=== PATIENT | male | born 1995 | race Caucasian/White ===

== ENCOUNTER 2017-08-16 05:39 | Observation (INO) | payer OTHER ==
--- NOTE | 2017-08-14 10:53 | PDGENHP ---
History and Physical - Chief Complaint Bilateral hip pain - History of Present Illness 1. Bilateral~Femoroacetabular impingement (RITIKA) Mixed type, with~resultant labral tear~ 2. Hyper laxity HISTORY OF PRESENT ILLNESS: Shoshanais a 22 y.o.~very ~active male~who I have had the pleasure to consult on today. I have enjoyed meeting him. He~lives in [place]. 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 ~He~is single; he~has no~children. ~ Shoshanaenjoys MMA fighting, running, and swimming. River's bilateral~hip pain started a year ago, with no~recalled trauma or injury, and with no~previous complaints. Shoshanadoes not have~a known history of hip dysplasia. Presentation today is of anterior, posterior, lateral bilateral~hip pain. ~The hip does not~wake him~at night and does~click and catch on him. Sitting does not present a problem~for him. Shoshanadoes not~report suffering from lower back pain episodes. Shoshanahas~participated in physical therapy and has~tried other conservative measures including dry needling. He~has not~received sufficient symptomatic improvement. Shoshanahas~utilized medication for pain management, including OTC acetaminophen and CBD oil. Shoshanahas used medication since the pain began. Shoshanaunderstands that he~has a hip and pelvis problem which should be researched and wishes to get a better understanding of his~hip status, followed by an establishment of a treatment strategy, hoping he~would be able to get back to his~well being active life. History: Past medical history: ~ None which is relevant Relevant familial history: None which is relevant Past surgical history: No. Surgery Anesthesia 1 Left Ing general Shoshanadenies problematic issues with general anesthesia in the past. I have reviewed, verified and agree with the past medical, surgical, family and social history. Current Medications:~currently has no medications in their medication list. ALLERGIES:~has No Known Allergies. Objective: Physical Examination: Shoshanais 6~feet 1~inches tall and weighs 155~Lbs. Shoshanais AAO x3; he~is well- nourished, in NAD. Skin is warm and dry. ~Breathing is non-labored. ~CV with RRR by pulse. Abdomen is soft, NTND. Currently, he~walks with a normal~gait. Trendelenburg sign is negative~and proprioception is reduced, both~side. He~presents with moderate~signs of joint laxity. Beightons Score: 5 Lower spine examination is negative~for sciatic or femoral nerve irritation with negative~SLR &~femoral stretch tests. Range of motion of the spine is normal~for flexion, extension, and rotations, with no~associated pain. Strength, Sensation and pulses are normal - bilaterally Ankles and knees exams are normal~and no~mal-alignment is evident. He~has no leg length discrepancy. Thigh circumference is symmetric~with no evidence for muscle atrophy~on both~ side. Hip ROM (degrees): FL ER At 90~hip FL IR At 90~hip FL AB AD EX IR Neutral hip ER Neutral hip R 110 40 15 40 10 20 55 35 L 105 40 25 45 10 20 50 40 Specific hip and pelvis tests: Quadrant ROBERT Roll Add. Longus R +++ +++ (more than quad) Negative Negative L +++ +++ (more than quad) Negative Negative Glut. Med ITB Pos. Imp R Negative 5/5 strength Negative 5/5 strength Negative L Negative 5/5 strength Negative 5/5 strength Negative Squeeze test measured strong Bony Symphysis pubis is pain free~to touch while concentric activity of the rectus abdominis, does not~produce pain at its insertion. Ilio Psos specific tests are negative for pain during cycling for both hips~and remarkable for no snap HF has no pain both hips. Anterior capsule tenderness bilaterally Greater trochanteric burse is pain free~on both hips. Piriformis tests: FAIR is negative, with no~local signs of neuritis related to sciatic nerve. SIJs examination is produces pain on left side~with normal~ROBERT in relation and local tenderness. Hamstrings tests are negative~functional contraction and negative~tendinopathy both hips. Imaging: Radiology studies which I have personally reviewed, analyzed and measured are below: XR: AP of the hip and pelvis: Performed in a good~technique Coccyx at level of the~pubic symphysis Standing [place] Lines are preserved. Minimal~Pathological signs are seen in the Symphysis Pubis. Minimal~Pathological signs are seen at the Ischial tuberosity. ~ Specific measurements show: NSA~ LCE Sourcil~Angle Sharp's angle Lat. Cam Lat. Pincer C.Over~sign Head~Coverage % ATDmm R N 35 1 35 (29) + + - N N L N 35 1 34 (29) + + - N N Pos. wall sign ISS NAD ~~Dysplasia Comments R Negative Negative 20~mm Negative L Negative Negative 17~mm Negative Sclerosis Sup. Lat. OA Cysts Joint Space-WBZ Joint Space-Medial R Negative Negative Negative 3.7~mm 3.2~mm L Negative Negative Negative 3.5~mm 3.2~mm X Table lateral: Anterior cam lesion is seen~on both hips. Alpha Angle: ~ Right 72~dergrees Left 72~degrees MRI shows:~good cartilage /~coverage, no bone edema, labral tears/anterior Right side shows large para-labral cyst extending from inferior anterior joint through the IP and inner pelvis Report: 1. Left hip anterior superior labral tear as well as right hip anterior superior labral fraying. No associated cartilage damage is demonstrated. 2. Right iliopsoas bursitis with strain involving the distal iliopsoas muscle fibers. 3. Prominence of the femoral head neck junctions may predispose to cam-type femoral acetabular impingement. Focal marrow edema is demonstrated at the right femoral head neck junction. Impression and plan: Shoshanais a 22 y.o.~active male~suffering from symptomatic bilateral~hip pain due to Bilateral~Femoroacetabular impingement (RITIKA) Mixed type, with~resultant labral tear~causing significant disability to him~and altering his~sport and life activities. Physical examination, imaging, and his~story correspond with the diagnosis mentioned above. I explained that femoroacetabular impingement (RITIKA) arises due to a bony or soft tissue conflict between the femur (ball) and acetabulum (socket) caused by an abnormality in the shape of the hip joint. Over time, repetitive impingement can result in damage to the labrum and adjacent surface cartilage within the socket, ultimately giving rise to progressive osteoarthritis of the hip. I explained that although a labral tear can be a source of pain, it is rarely the root of the problem and typically occurs secondary to an underlying abnormality in the shape and mechanics of the hip joint. ~ I reviewed conservative treatment options for RITIKA including activity modification to avoid positions of impingement, physical therapy, non-steroidal anti-inflammatory medications, and various injections (corticosteroid and PRP) aimed at reducing inflammation in the hip joint or/and preventing dynamic impingement. PRP injections may promote healing and reduce symptoms in certain cases but it will not repair chronically damaged tissue. Although these measures may help to buy time and reduce current level of symptoms, they are not a definitive solution to the problem given the underlying abnormality in the shape of the hip joint. Patients who have failed conservative management and continue to experience symptoms are candidates for hip arthroscopy, a minimally invasive surgery that can definitively address the underlying problem. Hip arthroscopy typically includes treating the labrum with either repair or reconstruction of the torn labrum; as well as addressing the underlying abnormalities by restoring the normal shape to the hip joint. ~If the cartilage is damaged a Microfracture surgical procedure may also be necessary to help stimulate the growth of fibrocartilage. ~If a patient requires a labral reconstruction or a Microfracture, the initial rehabilitation from the surgery may take longer, but the fdc results are typically favorable. I reviewed the technical aspects of hip arthroscopy including risks, benefits, and expected course of recovery. River~understands that hip arthroscopy is a minimally invasive outpatient procedure carried out through small incisions on the outer aspect of the hip joint. During surgery, the labral tear will be identified and either repaired or reconstructed~using bone anchors and suture material. Additionally, any excessive bone will be removed with a high-speed roscoe to reshape the hip joint and restore normal anatomy. Risks include infection, bleeding, injury to nearby nerves or vessels, stiffness, persistent pain, instability, venous thromboembolic disease, and traction related complications including temporary foot numbness. Rarely, revision surgery may be required to address these problems. Overall recovery takes approximately 4~ 8~months depending on the extent of damage and degree of repair. In the event that the labral tissue quality is inadequate for successful repair and healing, River~understands that a labral reconstruction will be performed. This procedure entails placing a cadaver tissue graft within the hip joint and stabilizing it with bone anchors to build a new labrum. The overall recovery time for labral reconstruction is similar to that of labral repair, although the surgical procedure takes longer to perform. River~will review the info presented. In order to obtain more detailed information regarding the alignment, orientation, and shape of the bony hip and pelvis I will order a CT scan to be performed. The results of the CT scan, including femoral torsion and acetabular version measured values and 3D images, will aid me in deciding on the best treatment strategy and surgical pre-planning. RiverDougwill contact us if he~wishes to pursue further treatment in the future. Shoshanais happy with this plan. I have also supplied him~with handouts, outlining the expected surgical treatment and rehab involved. I wish~Shoshanaall the best, ~~ Krishna Fine, PAC History Information - Allergies/Home Medication List Allergies/Adverse Reactions: No Known Allergies Allergy (Verified 07/12/17 15:25) Home Medications: NK [No Known Home Meds] 07/12/17 [Last Taken Unknown] I have personally reviewed and updated: medical history - Social History Smoking Status: Never smoked Review of Systems Review of Systems: Physical Exam Physical Exam:
[2017-08-16] MEDS ORDERED: ACETAMINOPHEN 500 MG TAB PO ONE (05:53)
[2017-08-16] MEDS ORDERED: PREGABALIN 150 MG CAP PO ONE (05:53)
[2017-08-16] MEDS ORDERED: ceFAZolin 2 GM/SWFI 2 GM/20 ML SYR IVP ONE (05:53)
[2017-08-16] MEDS ORDERED: LR 1,000 ML IV ONE (05:54)
[2017-08-16] MEDS ORDERED: LIDOCAINE 1% 2 ML INJ ID PRN (05:54)
--- NOTE | 2017-08-16 06:48 | PDANEPAE ---
ANE History of Present Illness B femoroplasty ANE Past Medical History - Cardiovascular History Hx Hypertension: No Hx Arrhythmias: No Hx Chest Pain: No Hx Coronary Artery / Peripheral Vascular Disease: No Hx CHF / Valvular Disease: No Hx Palpitations: No - Pulmonary History Hx COPD: No Hx Asthma/Reactive Airway Disease: No Hx Recent Upper Respiratory Infection: No Hx Oxygen in Use at Home: No Hx Sleep Apnea: No Sleep Apnea Screening Result - Last Documented: Negative - Neurologic History Hx Cerebrovascular Accident: No Hx Seizures: No Hx Dementia: No - Endocrine History Hx Diabetes: No - Renal History Hx Renal Disorders: No - Liver History Hx Hepatic Disorders: No - Neurological & Psychiatric Hx Hx Neurological and Psychiatric Disorders: Yes Neurological / Psychiatric History Comment: anxiety. depression - Cancer History Hx Cancer: No - Congenital Disorder History Hx Congenital Disorders: No - GI History Hx Gastrointestinal Disorders: No - Other Health History Other Health History: has gold crown to one tooth - Chronic Pain History Chronic Pain: No - Surgical History Prior Surgeries: hernia repair in second grade ANE Review of Systems Review of systems is: negative Review of Systems: - Exercise capacity Exercise capacity: >=4 METS METS (RN): 6 METS ANE Patient History - Allergies Allergies/Adverse Reactions: No Known Allergies Allergy (Verified 07/12/17 15:25) - Home Medications Home medications: home medication list seen and reviewed Home Medications: NK [No Known Home Meds] 07/12/17 [Last Taken Unknown] - NPO status NPO Status: no food or drink >8 hours NPO Since - Liquids (Date): 08/15/17 NPO Since - Liquids (Time): 22:30 NPO Since - Solids (Date): 08/15/17 NPO Since - Solids (Time): 21:00 - Anes Hx Anes Hx: post operative nausea - Smoking Hx Smoking Status: Never smoked - Family Anes Hx Family Anes Hx: none Family Hx Anesthesia Complications: none ANE Labs/Vital Signs - Vital Signs Blood Pressure: 147/87 Heart Rate: 62 Respiratory Rate: 18 O2 Sat (%): 98 Height: 185.42 cm Weight: 70.307 kg ANE Physical Exam - Airway Neck exam: FROM Mallampati Score: Class 1 Mouth exam: normal dental/mouth exam - Pulmonary Pulmonary: no respiratory distress - Cardiovascular Cardiovascular: regular rate and rhythym - ASA Status ASA Status: I ANE Anesthesia Plan Anesthesia Plan: general endotracheal anesthesia
[2017-08-16] MEDS ORDERED: MIDAZOLAM 2 MG/2 ML VIAL IVP ONE (06:58)
[2017-08-16] MEDS ORDERED: ROCURONIUM 50 MG/5 ML VIAL ONE (07:11)
[2017-08-16] MEDS ORDERED: fentaNYL 100 MCG/2 ML INJ ONE ×2 (07:11→16:05)
[2017-08-16] MEDS ORDERED: HYDROmorphONE/DILAUDID 2 MG/ML INJ ONE ×3 (07:11→13:02)
[2017-08-16] MEDS ORDERED: LIDOCAINE 2% 100 MG/5 ML SYR ONE (07:11)
[2017-08-16] MEDS ORDERED: DEXAMETHASONE 4 MG/ML VIAL ONE (07:11)
[2017-08-16] MEDS ORDERED: ONDANSETRON 4 MG/2 ML VIAL ONE ×2 (07:11→16:28)
[2017-08-16] MEDS ORDERED: SUGAMMADEX SODIUM 200 MG/2 ML VIAL IVP ONE (07:11)
[2017-08-16] MEDS ORDERED: PROPOFOL 200 MG/20 ML VIAL ONE (07:11)
[2017-08-16] MEDS ORDERED: PROPOFOL/EMULSION 500 MG/50 ML BOTTLE IV ONE ×3 (07:36→14:13)
[2017-08-16] MEDS ORDERED: hydrALAZINE 20 MG/ML VIAL ONE (11:04)
[2017-08-16] MEDS ORDERED: LABETALOL HCL 5 MG/ML 20 ML MDV ONE (13:14)
--- NOTE | 2017-08-16 13:45 | POSTANESTH ---
Post Anesthetic Evaluation Cardiovascular Status: Normal, Stable, Similar to Pre-Op Cond Respiratory Status: Normal, Stable, Similar to Pre-op Cond. Level of Consciousness/Mental Status: Can Participate in Eval, Mildly Sleepy, Arousable Pain Control: Adequate, Prn Tx Ordered Nausea/Vomiting Control: Adequate, Prn Tx Ordered Complications Possibly Related to Anesthesia: None Noted
[2017-08-16] MEDS ORDERED: ceFAZolin 1 GM VIAL ONE ×2 (15:08→15:35)
[2017-08-16] MEDS ORDERED: HYDROmorphONE/DILAUDID 1 MG/ML INJ IVP PRN ×2 (16:02→18:31)
[2017-08-16] MEDS ORDERED: LABETALOL HCL 5 MG/ML 20 ML MDV IVP PRN (16:02)
[2017-08-16] MEDS ORDERED: NALOXONE HCL 0.4 MG/ML INJ IVP PRN (16:02)
[2017-08-16] MEDS ORDERED: DIAZEPAM 10 MG/2 ML SYR IVP PRN (16:02)
[2017-08-16] MEDS ORDERED: HYDROCODONE/APAP 5/325 TAB PO PRN (16:02)
[2017-08-16] MEDS ORDERED: MEPERIDINE 25 MG/ML SYR IVP PRN (16:02)
[2017-08-16] MEDS ORDERED: ONDANSETRON 4 MG/2 ML VIAL IVP PRN ×2 (16:02→18:26)
[2017-08-16] MEDS ORDERED: PROMETHAZINE HCL 25 MG/ML INJ IVP PRN ×2 (16:02→18:53)
[2017-08-16] MEDS ORDERED: ACETAMINOPHEN 500 MG TAB PO PRN (16:02)
[2017-08-16] MEDS ORDERED: OXYCODONE/APAP 5/325 TAB PO PRN (16:02)
[2017-08-16] MEDS ORDERED: DEXAMETHASONE 4 MG/ML VIAL IVP PRN (16:02)
[2017-08-16] MEDS ORDERED: MEPERIDINE 25 MG/ML SYR ONE (16:05)
[2017-08-16] MEDS: fentaNYL 100 MCG/2 ML INJ IVP PRN ×2 (16:26→17:27)
[2017-08-16] MEDS ORDERED: HYDROCODONE/APAP 5/325 TAB ONE (18:01)
[2017-08-16] MEDS ORDERED: ONDANSETRON DISINTEGRATING 4 MG TAB PO PRN (18:26)
[2017-08-16] MEDS ORDERED: POLYETHYLENE GLYCOL 3350 17 GM PKT PO PRN (18:26)
[2017-08-16] MEDS ORDERED: MAGNESIUM HYDROXIDE 30 ML UDCUP PO PRN (18:26)
[2017-08-16] MEDS ORDERED: DIAZEPAM 2 MG TAB PO PRN (18:26)
[2017-08-16] MEDS ORDERED: BISACODYL 10 MG SUPP PR PRN (18:26)
[2017-08-16] MEDS ORDERED: LACTULOSE 20 GM/30 ML UDCUP PO PRN (18:26)
[2017-08-16] MEDS ORDERED: NS 1,000 ML IV SCH (18:30)
[2017-08-16] MEDS ORDERED: PROMETHAZINE HCL 25 MG TAB PO PRN (18:50)
[2017-08-16] MEDS ORDERED: HYDROmorphONE/DILAUDID 1 MG/ML INJ ONE ×2 (18:53→19:14)
[2017-08-16] MEDS ORDERED: PROMETHAZINE HCL 25 MG/ML INJ ONE (19:04)
[2017-08-16] MEDS: SENNOSIDES/DOCUSATE SODIUM TAB PO SCH (20:41)
[2017-08-16] MEDS: NAPROXEN SODIUM 220 MG TAB PO SCH (20:41)
--- NOTE | 2017-08-17 00:32 | SUROPNOTE ---
[facility] Operative Report - Surgery Surgery was performed at [facility] on 08/16/17 ~~ OPERATION NOTE~on River Chau Diagnosis: 1. Bilateral~Femoroacetabular impingement (RITIKA) Cam type, with~resultant labral tear, Cartilage damage 2. Toni anterior hip instability Indication: Failure to obtain satisfactory results with long standing conservative measures. Operation 1:~Left~Arthroscopic Labral repair, Debridement of loose cartilage flap + micro fracture of acetabulum, CAM resection, Synovectomy, Capsular repair Surgeon: ~~~~~~~~~~~Bob Whiting MD ~ Scale Reclamation Tender:~~~Otilia Sahu MD Anaesthetic:~~~~~~~General Findings~ Left~Hip: Labrum: hypertrophic, torn 12-3 Acetabulum: Cartilage damage grade 4, cam type flap~extending around chondrolabral junction, circumferentially, from 11~to 3, 10-15% rim to acatabular fossa Fovea: Partial tear of LT Femoral Head: Normal cartilage Synovium: severe~synovitis Peripheral Compartment: Anterolateral CAM between 11~O'clock superiorly and 6~O' clock anteriorly Procedure: Supine on operating table. General anaesthetic. Antibiotics given. Standard traction set up, without perineal post. A spinal needle was guided to the femoral head neck junction and traction gradually applied with the joint vented. Local anesthetic infiltrated into the skin around the portals. Once 15mm of distraction was achieved the hip needle was then passed into the joint staying as close to the femoral head as possible. A Nytenol wire was passed through the hip needle ensuring that it passed all the way to the fovea to confirm central placement of the needle. Skin was incised and then the portals sequentially dilated to 7 mm. Switching stick inserted and 30 scope passed over the top. Under dry scope conditions the anterior portal was created by passing the hip needle into the joint under direct vision. Again this was dilated up to 7 mm and the slotted canule was inserted. The saline was then turned on and the joint irrigated. The joint was carefully inspected and photographed with findings as above. The arthroscope was switched to the 70 scope to complete the inspection. A longitudinal intra portal capsulotomy was then performed using cowlitz blade and the 50 Arthrocare wand to connect the two portals. Central Compartment Intervention: Synovectomy was performed. Flap was debrided and stable edges were achieved. ~The labrum was then repaired~with 2~peek anchor IO, 12 and 3 o'clock,~ achieving good anatomical rim fixation. Microfractures were applied to the area where the bone was exposed from missing cartilage. ~ LT was treated with RF wand to shrink and stabilize reactive tissue.~ Peripheral Compartment Intervention: A box-shaped capsulotomy was made with the assistance of SpeedStitch traction suture. This allowed traction on the capsule and a good view of the femoral neck with smaller capsulotomy. The articular margin where sphericity was lost was marked with the Arthrocare wand under X-ray control. Bone lateral to this was removed with the the roscoe. Portals were switched to deal with the superior headneck junction. Care was taken not to stray posterior and laterally in view of the location of the retinacular vessels. The cam lesion was addressed from 11~to 6~O'clock. A dynamic impingement test was undertaken and vision with 90 of flexion and 10 of internal rotation to confirm that there was no bony or soft tissue impingement or deformation of the labrum. ~Good clearance was obtained with good labral seal. The joint was thoroughly irrigated of any loose debris and the anterior capsule was repaired with 3~No.1 vicryl stitches, closing 80% of the capsulotomy. The skin was then closed with Nylon. Padded dressing was applied. Operation 2:~Right Arthroscopic Labral repair, Debridement of loose cartilage flap + micro fracture of acetabulum, CAM resection, Synovectomy, Capsular repair Surgeon: ~~~~~~~~~~~Bob Whiting MD ~ Scale Reclamation Tender:~~~Otilia Sahu MD Anaesthetic:~~~~~~~General Findings~ Right Hip: Labrum: hypertrophic, torn 12-3 Acetabulum: Cartilage damage grade 4, cam type flap~extending around chondrolabral junction, circumferentially, from 11~to 3, 10-15% rim to acatabular fossa Fovea: Partial tear of LT Femoral Head: Normal cartilage Synovium: severe~synovitis Peripheral Compartment: Anterolateral CAM between 11~O'clock superiorly and 6~O' clock anteriorly Procedure: Supine on operating table. General anaesthetic. Antibiotics given. Standard traction set up, without perineal post. A spinal needle was guided to the femoral head neck junction and traction gradually applied with the joint vented. Local anesthetic infiltrated into the skin around the portals. Once 15mm of distraction was achieved the hip needle was then passed into the joint staying as close to the femoral head as possible. A Nytenol wire was passed through the hip needle ensuring that it passed all the way to the fovea to confirm central placement of the needle. Skin was incised and then the portals sequentially dilated to 7 mm. Switching stick inserted and 30 scope passed over the top. Under dry scope conditions the anterior portal was created by passing the hip needle into the joint under direct vision. Again this was dilated up to 7 mm and the slotted canule was inserted. The saline was then turned on and the joint irrigated. The joint was carefully inspected and photographed with findings as above. The arthroscope was switched to the 70 scope to complete the inspection. A longitudinal intra portal capsulotomy was then performed using cowlitz blade and the 50 Arthrocare wand to connect the two portals. Central Compartment Intervention: Synovectomy was performed. Flap was debrided and stable edges were achieved. ~The labrum was then repaired~with 3~peek anchor IO, 12, 3 and 4 o'clock,~ achieving good anatomical rim fixation. Microfractures were applied to the area where the bone was exposed from missing cartilage. ~ LT was treated with RF wand to shrink and stabilize reactive tissue.~ Peripheral Compartment Intervention: A box-shaped capsulotomy was made with the assistance of SpeedStitch traction suture. This allowed traction on the capsule and a good view of the femoral neck with smaller capsulotomy. The articular margin where sphericity was lost was marked with the Arthrocare wand under X-ray control. Bone lateral to this was removed with the the roscoe. Portals were switched to deal with the superior headneck junction. Care was taken not to stray posterior and laterally in view of the location of the retinacular vessels. The cam lesion was addressed from 11~to 6~O'clock. A dynamic impingement test was undertaken and vision with 90 of flexion and 10 of internal rotation to confirm that there was no bony or soft tissue impingement or deformation of the labrum. ~Good clearance was obtained with good labral seal. The joint was thoroughly irrigated of any loose debris and the anterior capsule was repaired with 3~No.1 vicryl stitches, closing 80% of the capsulotomy. The skin was then closed with Nylon. Padded dressing was applied. After surgery, River~moved both lower limbs and had no NV compromise. Evaluation under Anesthesia: Pre: IR 90 ER 90 ABD Flexion Right 20 40 45 120 Left 25 45 40 120 Post op instructions: 1. Full~weight bearing crutches for 6~weeks 2. Pain killers as prescribed 3. Follow up visit with me, as scheduled, where a rehab protocol would be discussed 4. Avoid hip external rotation for 4 weeks 5. ~~25 days of NSAIDS need to be taken in order to prevent the possible formation of HO ~ Kind regards, ~~ Dr. Bob Whiting
[2017-08-17] MEDS: OXYCODONE/APAP 5/325 TAB PO PRN ×3 (01:59→09:46)
[2017-08-17 04:43] VITALS: RESP 16
[2017-08-17 07:45] VITALS: BP 110/60; PULSE 77; TEMP 97.8; O2SAT 98
[2017-08-17] MEDS: SENNOSIDES/DOCUSATE SODIUM TAB PO SCH (07:55)
[2017-08-17] MEDS: NAPROXEN SODIUM 220 MG TAB PO SCH (07:56)
--- NOTE | 2017-08-17 11:59 | ASDISCHSUM ---
Discharge Information Plan Status:Home with No Needs Medically Cleared to Leave: Discharge Date:08/17/2017 11:38 AM CM D/C Disposition:Home, Routine, Self-Care ADT D/C Disposition:Home, Routine, Self-Care Projected Discharge Date:08/17/2017 11:38 AM Transportation at D/C: Discharge Delay Reason: Follow-Up Date:08/17/2017 11:38 AM Discharge Slot: Final Diagnosis: Placement Information Patient Contact Information Contact Name:CHRISTIANO Relationship:Mother Address: Work Phone: City: [facility] Phone: State/Zip Code: Email: Financial Information Financial Class:HMO and PPO Plans Primary Plan Desc:[facility] Primary Plan Number:[id number] Secondary Plan Desc: Secondary Plan Number: Assessment Information Intervention Information
== END 2017-08-17 11:38 | disposition home or self-care (01) ==
LOC: FSGY 05:39 → INTOOBSV 18:26 → F3N 18:26
PROVIDERS: ADMIT Orthopaedic Surgery Sports Medicine; ATTEND Orthopaedic Surgery Sports Medicine
DX: M25.851 Other specified joint disorders, right hip (principal); M25.852 Other specified joint disorders, left hip; S73.191A Other sprain of right hip, initial encounter; S73.192A Other sprain of left hip, initial encounter
CPT/HCPCS: 29863; 76001; G0378; C1713; J0360; J0690; J1100; J1170; J2001; J2250; J2405; J2550; J2704; J3010; J3490

== ENCOUNTER 2018-07-10 12:49 | Day surgery (SDC) | payer OTHER ==
--- NOTE | 2018-07-10 12:39 | PDGENHP ---
History and Physical - Chief Complaint Bilateral Hip Pain - History of Present Illness Diagnosis: 1. Bilateral~Femoroacetabular impingement (RITIKA) Mixed type,~with~resultant labral tear~ 2. Hyper laxity~ 3. History of Bilateral Hip Arthroscopy HISTORY OF PRESENT ILLNESS: Shoshanais a 22 y.o.~very~~active male~who I have had the pleasure to consult on today. 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 ~ Shoshanaenjoys MMA fighting, running, and swimming. River's~bilateral~hip pain started a year ago, with~no~recalled trauma or injury, and with no~previous complaints. Shoshanadoes not have~a known history of hip dysplasia. Presentation today is of~anterior, posterior, lateral~bilateral~hip pain. ~The hip~does not~wake him~at night and does~click and catch on him. Sitting~does not present a problem~for him.~Shoshanadoes not~report suffering from lower back pain episodes. Shoshanahas~participated in physical therapy and has~tried other conservative measures including dry needling.~Dain~has not~received sufficient symptomatic improvement. Shoshanahas~utilized medication for pain management, including OTC acetaminophen and~CBD oil.~Shoshanahas used medication since the pain began. Shoshanaunderstands that he~has a hip and pelvis problem which should be researched and wishes to get a better understanding of his~hip status, followed by an establishment of a treatment strategy, hoping he~would be able to get back to his~well being active life. History: Past medical history:~~ None which is relevant~ Relevant familial history:~None which is relevant~ Past surgical history:~ No. Surgery Anesthesia 1 Left Ing general Shoshanadenies problematic issues with general anesthesia in the past. I have reviewed, verified and agree with the past medical, surgical, family and social history. Current Medications:~currently has no medications in their medication list. ALLERGIES:~has No Known Allergies. Objective: Physical Examination: Shoshanais 6~feet 1~inches tall and weighs 155~Lbs. Shoshanais AAO x3; he~is well- nourished, in NAD. Skin is warm and dry. ~Breathing is non-labored. ~CV with RRR by pulse. Abdomen is soft, NTND. Currently,~he~walks with a normal~gait. Trendelenburg sign is~negative~and proprioception is reduced,~both~side. He~presents with moderate~signs of joint laxity. Beightons Score:~5 Lower spine examination is~negative~for sciatic or femoral nerve irritation with negative~SLR &~femoral stretch tests. Range of motion of the spine is normal~for flexion, extension, and rotations, with no~associated pain. Strength, Sensation and pulses are~normal -~bilaterally Ankles and knees exams are~normal~and no~mal-alignment is evident. He~has no leg length discrepancy. Thigh circumference is~symmetric~with no evidence for muscle atrophy~on both~ side. Hip ROM (degrees): FL ER At 90~hip FL IR At 90~hip FL AB AD EX IR Neutral hip ER Neutral hip R 110 40 15 40 10 20 55 35 L 105 40 25 45 10 20 50 40 Specific hip and pelvis tests: Quadrant ROBERT Roll Add. Longus R +++ +++~(more than quad) Negative Negative L +++ +++~(more than quad) Negative Negative Glut. Med ITB Pos. Imp R Negative 5/5 strength Negative 5/5 strength Negative L Negative 5/5 strength Negative 5/5 strength Negative Squeeze test measured~strong Bony Symphysis pubis is~pain free~to touch while concentric activity of the rectus abdominis, does not~produce pain at its insertion. Ilio Psos specific tests are~negative for pain during cycling for~both hips~and remarkable for no snap HF has~no pain~both hips. Anterior~capsule tenderness~bilaterally Greater trochanteric burse is~pain free~on both hips. Piriformis tests: FAIR is~negative,~with no~local signs of neuritis related to sciatic nerve. SIJs examination is~produces pain on~left side~with normal~ROBERT in relation and local tenderness. Hamstrings tests are~negative~functional contraction and negative~tendinopathy both hips. Imaging: Radiology studies which I have personally reviewed, analyzed and measured are below: XR: AP of the hip and pelvis: Performed in a~good~technique Coccyx~at level of the~pubic symphysis Standing [place] Lines are~preserved. Minimal~Pathological signs are seen in the Symphysis Pubis. Minimal~Pathological signs are seen at the Ischial tuberosity. ~ Specific measurements show: NSA~ LCE Sourcil~Angle Sharp's angle Lat. Cam Lat. Pincer C.Over~sign Head~Coverage % ATDmm R N 35 1 35 (29) + + - N N L N 35 1 34 (29) + + - N N Pos. wall sign ISS NAD ~~Dysplasia Comments R Negative Negative 20~mm Negative L Negative Negative 17~mm Negative Sclerosis Sup. Lat. OA Cysts Joint Space-WBZ Joint Space-Medial R Negative Negative Negative 3.7~mm 3.2~mm L Negative Negative Negative 3.5~mm 3.2~mm X Table lateral: Anterior cam lesion is~seen~on both hips. Alpha Angle: ~ Right~72~dergrees Left~72~degrees MRI shows:~good cartilage~/~coverage, no bone edema, labral tears/anterior Right side shows large para-labral cyst extending from inferior anterior joint through the IP and inner pelvis Report: 1. Left hip anterior superior labral tear as well as right hip anterior superior labral fraying. No associated cartilage damage is demonstrated. 2. Right iliopsoas bursitis with strain involving the distal iliopsoas muscle fibers. 3. Prominence of the femoral head neck junctions may predispose to cam-type femoral acetabular impingement. Focal marrow edema is demonstrated at the right femoral head neck junction. Impression and plan:~ Shoshanais a 22 y.o.~active male~suffering from symptomatic bilateral~hip pain due to Bilateral~Femoroacetabular impingement (RITIKA) Mixed type,~with~resultant labral tear~causing significant disability to him~and altering his~sport and life activities. Physical examination, imaging, and~his~story correspond with the diagnosis mentioned above. I explained that femoroacetabular impingement (RITIKA) arises due to a bony or soft tissue conflict between the femur (ball) and acetabulum (socket) caused by an abnormality in the shape of the hip joint. Over time, repetitive impingement can result in damage to the labrum and adjacent surface cartilage within the socket, ultimately giving rise to progressive osteoarthritis of the hip. I explained that although a labral tear can be a source of pain, it is rarely the root of the problem and typically occurs secondary to an underlying abnormality in the shape and mechanics of the hip joint. ~ I reviewed conservative treatment options for RITIKA including activity modification to avoid positions of impingement, physical therapy, non-steroidal anti-inflammatory medications, and various injections (corticosteroid and PRP) aimed at reducing inflammation in the hip joint or/and preventing dynamic impingement. PRP injections may promote healing and reduce symptoms in certain cases but it will not repair chronically damaged tissue. Although these measures may help to buy time and reduce current level of symptoms, they are not a definitive solution to the problem given the underlying abnormality in the shape of the hip joint. Patients who have failed conservative management and continue to experience symptoms are candidates for hip arthroscopy, a minimally invasive surgery that can definitively address the underlying problem. Hip arthroscopy typically includes treating the labrum with either repair or reconstruction of the torn labrum; as well as addressing the underlying abnormalities by restoring the normal shape to the hip joint. ~If the cartilage is damaged a Microfracture surgical procedure may also be necessary to help stimulate the growth of fibrocartilage. ~If a patient requires a labral reconstruction or a Microfracture, the initial rehabilitation from the surgery may take longer, but the shelter results are typically favorable. I reviewed the technical aspects of hip arthroscopy including risks, benefits, and expected course of recovery.~River~understands that hip arthroscopy is a minimally invasive outpatient procedure carried out through small incisions on the outer aspect of the hip joint. During surgery, the labral tear will be identified and either repaired or reconstructed~using bone anchors and suture material. Additionally, any excessive bone will be removed with a high-speed roscoe to reshape the hip joint and restore normal anatomy. Risks include infection, bleeding, injury to nearby nerves or vessels, stiffness, persistent pain, instability, venous thromboembolic disease, and traction related complications including temporary foot numbness. Rarely, revision surgery may be required to address these problems. Overall recovery takes approximately 4~ 8~months depending on the extent of damage and degree of repair. In the event that the labral tissue quality is inadequate for successful repair and healing,~River~understands that a labral reconstruction will be performed. This procedure entails placing a cadaver tissue graft within the hip joint and stabilizing it with bone anchors to build a new labrum. The overall recovery time for labral reconstruction is similar to that of labral repair, although the surgical procedure takes longer to perform. Shoshanawill review the info presented. In order to obtain more detailed information regarding the alignment, orientation, and shape of the bony hip and pelvis I will order a CT scan to be performed. The results of the CT scan, including femoral torsion and acetabular version measured values and 3D images, will aid me in deciding on the best treatment strategy and surgical pre-planning. Shoshanawill contact us if he~wishes to pursue further treatment in the future. Shoshanais happy with this plan. I have also supplied~him~with handouts, outlining the expected surgical treatment and rehab involved. I wish~Sohshanaall the best, ~~ Krishna Fine, PAC History Information - Allergies/Home Medication List Allergies/Adverse Reactions: No Known Allergies Allergy (Verified 07/12/17 15:25) Home Medications: Herbals/Supplements -Info Only 06/30/18 [Last Taken Unknown] Trintellix 06/30/18 [Last Taken Unknown] I have personally reviewed and updated: medical history - Social History Smoking Status: Never smoked Review of Systems Review of Systems: Physical Exam Physical Exam:
[2018-07-10] MEDS ORDERED: PREGABALIN 150 MG CAP PO ONE (13:36)
[2018-07-10] MEDS ORDERED: ACETAMINOPHEN 500 MG TAB PO ONE (13:36)
[2018-07-10] MEDS ORDERED: ceFAZolin 2 GM/DEXTROSE 100 ML IV ONE (13:36)
[2018-07-10] MEDS ORDERED: LIDOCAINE 1% 2 ML INJ ID PRN (13:46)
[2018-07-10] MEDS ORDERED: LR 1,000 ML IV ONE (13:46)
[2018-07-10] MEDS ORDERED: EPINEPHrine 30 MG/30 ML MDV (0.1 MG/0.1 ML) ONE (13:50)
[2018-07-10] MEDS ORDERED: BUPIVACAINE 0.25% 30 ML SDV ONE (13:50)
--- NOTE | 2018-07-10 13:51 | PDANEPAE ---
ANE History of Present Illness bilateral hip scope for adhesions ANE Past Medical History - Cardiovascular History Hx Hypertension: No Hx Arrhythmias: No Hx Chest Pain: No Hx Coronary Artery / Peripheral Vascular Disease: No Hx CHF / Valvular Disease: No Hx Palpitations: No - Pulmonary History Hx COPD: No Hx Asthma/Reactive Airway Disease: No Hx Recent Upper Respiratory Infection: No Hx Oxygen in Use at Home: No Hx Sleep Apnea: No Sleep Apnea Screening Result - Last Documented: Negative - Neurologic History Hx Cerebrovascular Accident: No Hx Seizures: No Hx Dementia: No - Endocrine History Hx Diabetes: No - Renal History Hx Renal Disorders: No - Liver History Hx Hepatic Disorders: No - Neurological & Psychiatric Hx Hx Neurological and Psychiatric Disorders: Yes Neurological / Psychiatric History Comment: anxiety. depression - Cancer History Hx Cancer: No - Congenital Disorder History Hx Congenital Disorders: No - GI History Hx Gastrointestinal Disorders: No - Other Health History Other Health History: TORN LABRUM R SHOULDER. has gold crown to one tooth - Chronic Pain History Chronic Pain: No - Surgical History Prior Surgeries: ELIECER HIP ARTHROSCOPY W/MICRO FS REPAIR. hernia repair in second grade ANE Review of Systems Review of Systems: - Exercise capacity METS (RN): 5 METS ANE Patient History - Allergies Allergies/Adverse Reactions: No Known Allergies Allergy (Verified 07/12/17 15:25) - Home Medications Home medications: home medication list seen and reviewed Home Medications: Herbals/Supplements -Info Only 06/30/18 [Last Taken Unknown] Trintellix 06/30/18 [Last Taken Unknown] - NPO status NPO Since - Liquids (Date): 07/10/18 NPO Since - Liquids (Time): 09:00 NPO Since - Solids (Date): 07/09/18 NPO Since - Solids (Time): 20:00 - Anes Hx Anes Hx: post operative nausea (says was significant) - Smoking Hx Smoking Status: Never smoked - Alcohol Use Alcohol Use: None - Family Anes Hx Family Anes Hx: none Family Hx Anesthesia Complications: none ANE Labs/Vital Signs - Vital Signs Blood Pressure: 139/75 Heart Rate: 60 Respiratory Rate: 16 O2 Sat (%): 99 Height: 185.42 cm Weight: 72.575 kg ANE Physical Exam - Airway Neck exam: FROM Mallampati Score: Class 2 Mouth exam: normal dental/mouth exam - Pulmonary Pulmonary: no respiratory distress - Cardiovascular Cardiovascular: regular rate and rhythym - ASA Status ASA Status: I ANE Anesthesia Plan Anesthesia Plan: GA w LMA
[2018-07-10] MEDS ORDERED: fentaNYL 100 MCG/2 ML INJ ONE ×2 (14:14→19:18)
[2018-07-10] MEDS ORDERED: PROPOFOL/EMULSION 500 MG/50 ML BOTTLE IV ONE ×2 (14:15→15:43)
[2018-07-10] MEDS ORDERED: LIDOCAINE 2% 100 MG/5 ML SYR ONE (14:17)
[2018-07-10] MEDS ORDERED: LIDOCAINE 2% JELLY 5 ML TUBE ONE (14:17)
[2018-07-10] MEDS ORDERED: ONDANSETRON 4 MG/2 ML VIAL ONE ×2 (14:41→19:38)
[2018-07-10] MEDS ORDERED: DEXAMETHASONE 4 MG/ML VIAL ONE ×2 (14:41)
[2018-07-10] MEDS ORDERED: PROPOFOL 200 MG/20 ML VIAL ONE (17:56)
[2018-07-10] MEDS ORDERED: DEXAMETHASONE 4 MG/ML VIAL IVP PRN (18:19)
[2018-07-10] MEDS ORDERED: ACETAMINOPHEN 500 MG TAB PO PRN (18:19)
[2018-07-10] MEDS ORDERED: oxyCODONE IR 5 MG TAB PO PRN (18:19)
[2018-07-10] MEDS ORDERED: PHENYLEPHRINE HCL 100 MCG/ML SYR IVP PRN (18:19)
[2018-07-10] MEDS ORDERED: ALBUTEROL 3 ML DEYVIAL IH PRN (18:19)
[2018-07-10] MEDS ORDERED: NS 500 ML IV PRN (18:19)
[2018-07-10] MEDS ORDERED: METOCLOPRAMIDE 10 MG/2 ML VIAL IVP PRN (18:19)
[2018-07-10] MEDS ORDERED: HYDROCODONE/APAP 5/325 TAB PO PRN (18:19)
[2018-07-10] MEDS ORDERED: MEPERIDINE 25 MG/0.5 ML AMP IVP PRN (18:19)
[2018-07-10] MEDS ORDERED: LABETALOL HCL 5 MG/ML 20 ML MDV IVP PRN (18:19)
[2018-07-10] MEDS ORDERED: LR 500 ML IV PRN (18:19)
[2018-07-10] MEDS ORDERED: ONDANSETRON 4 MG/2 ML VIAL IVP PRN (18:19)
[2018-07-10] MEDS ORDERED: NALOXONE HCL 0.4 MG/ML INJ IVP PRN (18:19)
[2018-07-10] MEDS ORDERED: PROMETHAZINE HCL 25 MG/ML INJ IVP PRN (18:19)
--- NOTE | 2018-07-10 18:44 | POSTOPPROG ---
Post Op Note Date of Operation: 07/10/18 Surgeon: Bob Whiting Electric Motor Fitter: Jeniffer Hernandez Pre-op Diagnosis: b/l hip adhesions Post-op Diagnosis: same Procedure: s/p b/l hip scope, lysis of adhesions, cam resection, capsular repair Inf/Abcess present in the surg proc area at time of surgery?: No EBL: Minimal
[2018-07-10] MEDS: fentaNYL 100 MCG/2 ML INJ IVP PRN ×2 (19:21→19:31)
[2018-07-10] MEDS ORDERED: HYDROCODONE/APAP 5/325 TAB ONE (19:44)
[2018-07-10 20:21] VITALS: BP 111/78
[2018-07-10] MEDS ORDERED: PROMETHAZINE HCL 25 MG/ML INJ ONE (20:38)
--- NOTE | 2018-07-11 08:27 | POSTANESTH ---
Post Anesthetic Evaluation Cardiovascular Status: Normal, Stable Respiratory Status: Normal, Stable Level of Consciousness/Mental Status: Can Participate in Eval Pain Control: Adequate, Prn Tx Ordered Nausea/Vomiting Control: Adequate, Prn Tx Ordered Complications Possibly Related to Anesthesia: None Noted
== END 2018-07-10 21:40 | disposition home or self-care (01) ==
LOC: FSGY 12:49
PROVIDERS: ATTEND Orthopaedic Surgery Sports Medicine
PROC: BQ11YZZ Fluoroscopy of Left Hip using Other Contrast (ICD-10-PCS; principal; 2018-07-10 14:30)
PROC: 0SQ94ZZ Repair Right Hip Joint, Percutaneous Endoscopic Approach (ICD-10-PCS; principal; 2018-07-10 14:30)
PROC: 0SB94ZZ Excision of Right Hip Joint, Percutaneous Endoscopic Approach (ICD-10-PCS; principal; 2018-07-10 14:30)
PROC: BQ10YZZ Fluoroscopy of Right Hip using Other Contrast (ICD-10-PCS; principal; 2018-07-10 14:30)
PROC: 0SBB4ZZ Excision of Left Hip Joint, Percutaneous Endoscopic Approach (ICD-10-PCS; principal; 2018-07-10 14:30)
PROC: 0SQB4ZZ Repair Left Hip Joint, Percutaneous Endoscopic Approach (ICD-10-PCS; principal; 2018-07-10 14:30)
DX: M25.851 Other specified joint disorders, right hip (principal); M25.852 Other specified joint disorders, left hip; M76.11 Psoas tendinitis, right hip; M25.751 Osteophyte, right hip; M25.752 Osteophyte, left hip; M24.851 Other specific joint derangements of right hip, not elsewhere classified; M24.852 Other specific joint derangements of left hip, not elsewhere classified; M65.9 Synovitis and tenosynovitis, unspecified; Z98.890 Other specified postprocedural states
CPT/HCPCS: C1713; J0171; J0690; J1100; J2001; J2405; J2550; J2704; J3010